=== PATIENT | female | born 1975 | race African-American/Black ===

== ENCOUNTER 2020-11-05 12:09 | Inpatient (IN) | payer BC, MEDICAID ==
[~2020-11-05] VITALS: Ht 165.1 cm; Wt 90.7 kg
[2020-11-05 14:39] LABS: BASOPHILS % 1.3 % (0.0-2.0); EOSINOPHILS % 0.9 % (0.0-5.0); HEMATOCRIT. 36.8 % (36.0-48.0); HEMOGLOBIN. 12.5 g/dL (12.0-16.0); MEAN CORPUSCULAR HEMOGLOBIN 30.9 pg (28.0-32.0); MEAN PLATELET VOLUME 7.8 fl (7.4-10.4); MONOCYTES % 8.1 % (2.0-8.0); NEUTROPHILS % 60.7 % (40.0-76.0); PLATELET 273 x1000/uL (130-400); RED BLOOD CELL COUNT 4.04 mill/uL (4.2-5.4); RED CELL DISTRIBUTION WIDTH 13.2 % (11.6-14.6)
[2020-11-05 14:48] LABS: CHLORIDE 108 mEq/L (98-107)
[2020-11-05] MEDS ORDERED: MORPHINE SULFATE 2 MG/ML CPJ (NOT FOR IM USE) IV PRN (22:30)
[2020-11-05] MEDS ORDERED: ACETAMINOPHEN 325MG TABLET PO PRN (22:30)
[2020-11-05] MEDS ORDERED: HYDROCODONE/ACETAMINOPHEN 5/325MG TABLET PO PRN (22:30)
[2020-11-05] MEDS ORDERED: CLONIDINE 0.1MG TABLET PO PRN (22:30)
[2020-11-05] MEDS ORDERED: ONDANSETRON HCL 4MG/2ML INJ IV PRN (22:30)
[2020-11-05] MEDS ORDERED: LORAZEPAM 2MG/ML CPJ IV PRN (22:30)
[2020-11-06 04:26] VITALS: BP 146/82
[2020-11-06] MEDS ORDERED: OXYM-15 NS (04:47)
[2020-11-06] MEDS ORDERED: MEDR5TAB4 PO (04:47)
[2020-11-06] MEDS ORDERED: FLUT9.9S16 BOTHNSTRLS (04:47)
[2020-11-06] MEDS ORDERED: AZEL205. BOTHNSTRLS (04:47)
[2020-11-06] MEDS ORDERED: POTA8CAP20 PO (04:47)
[2020-11-06] MEDS ORDERED: FURO40TA5 PO (04:47)
[2020-11-06] MEDS ORDERED: *PATIENT'S OWN MEDICATION STORAGE XX SCH (05:00)
[2020-11-06] MEDS ORDERED: IPRATROPIUM/ALBUTEROL 0.5-3(2.5)MG/3ML NEB HHN PRN (07:15)
[2020-11-06] MEDS ORDERED: DOCUSATE SODIUM 100MG CAPSULE PO PRN (07:15)
[2020-11-06] MEDS ORDERED: MAGNESIUM/ALUMINUM HYDROXIDE/SIMETHICONE 30ML UDC PO PRN (07:15)
[2020-11-06 07:41] LABS: BASOPHILS % 0.5 % (0.0-2.0); EOSINOPHILS % 1.5 % (0.0-5.0); HEMATOCRIT. 34.9 % (36.0-48.0); HEMOGLOBIN. 11.8 g/dL (12.0-16.0); LYMPHOCYTES % 29.2 % (20.0-50.0); MEAN CORPUSCULAR VOLUME 91.4 fL (81.0-99.0); MEAN PLATELET VOLUME 8.5 fl (7.4-10.4); MONOCYTES % 6.9 % (2.0-8.0); NEUTROPHILS % 61.9 % (40.0-76.0); PLATELET 245 x1000/uL (130-400); RED BLOOD CELL COUNT 3.82 mill/uL (4.2-5.4); RED CELL DISTRIBUTION WIDTH 12.9 % (11.6-14.6)
[2020-11-06 08:00] VITALS: BP 123/71
[2020-11-06 08:21] LABS: *AMPHETAMINES SCREEN URINE NEGATIVE (NEGATIVE); *BARBITURATES SCREEN URINE NEGATIVE (NEGATIVE); *BENZODIAZEPINES SCREEN URINE NEGATIVE (NEGATIVE); *COCAINE SCREEN URINE NEGATIVE (NEGATIVE)
[2020-11-06 08:22] LABS: CANNABINOID URINE SCREEN NEGATIVE (NEGATIVE); METHADONE URINE SCREEN NEGATIVE (NEGATIVE); OPIATES URINE SCREEN NEGATIVE (NEGATIVE); PHENCYCLIDINE URINE SCREEN NEGATIVE (NEGATIVE)
[2020-11-06] MEDS: FUROSEMIDE 40MG TABLET PO SCH (08:35)
[2020-11-06 08:49] LABS: CHLORIDE 108 mEq/L (98-107)
[2020-11-06] MEDS ORDERED: ENOXAPARIN 40MG/0.4ML SYR SUBCUT SCH (09:00)
[2020-11-06 12:00] VITALS: BP 111/66
[2020-11-06 16:00] VITALS: BP 125/74
[2020-11-06 20:03] VITALS: BP 130/78
[2020-11-06 22:03] VITALS: BP 124/78
[2020-11-07] VITALS (7 sets, daily range): BP systolic 105–125; BP diastolic 57–87
[2020-11-07] MEDS ORDERED: OMEPRAZOLE 20MG CAPSULE EXTENDED RELEASE PO SCH (06:50)
[2020-11-07 07:06] LABS: BASOPHILS % 0.5 % (0.0-2.0); EOSINOPHILS % 2.8 % (0.0-5.0); HEMOGLOBIN. 12.1 g/dL (12.0-16.0); LYMPHOCYTES % 25.4 % (20.0-50.0); MEAN CORPUSCULAR HEMOGLOBIN 30.5 pg (28.0-32.0); MEAN CORPUSCULAR VOLUME 90.5 fL (81.0-99.0); MEAN PLATELET VOLUME 8.1 fl (7.4-10.4); MONOCYTES % 9.9 % (2.0-8.0); NEUTROPHILS % 61.4 % (40.0-76.0); PLATELET 246 x1000/uL (130-400); RED BLOOD CELL COUNT 3.98 mill/uL (4.2-5.4)
[2020-11-07 07:11] LABS: CHLORIDE 108 mEq/L (98-107)
[2020-11-07 07:18] LABS: LDL CHOLESTEROL 99 mg/dL (5-100)
[2020-11-07 07:19] LABS: HDL CHOLESTEROL 84 mg/dL (40-59)
[2020-11-07 07:20] LABS: T4 FREE 1.16 ng/dL (0.76-1.46)
[2020-11-07] MEDS: FUROSEMIDE 40MG TABLET PO SCH (08:18)
[2020-11-07] MEDS ORDERED: ENOXAPARIN 30MG/0.3ML SYR SUBCUT SCH (09:00)
[2020-11-07] MEDS ORDERED: POTASSIUM CHLORIDE 20MEQ TABLET SR PO SCH (10:00)
== END 2020-11-07 17:30 | disposition home or self-care (01) | DRG 206 ==
LOC: ER 12:15 → 3WST 16:42 → EDBEDREQ 16:54 → ENRESERV 22:05
PROVIDERS: ADMIT Internal Medicine Nephrology; ATTEND Internal Medicine Nephrology
DX: M94.0 Chondrocostal junction syndrome [Tietze] (principal); F41.9 Anxiety disorder, unspecified; F45.9 Somatoform disorder, unspecified; I10 Essential (primary) hypertension; Z90.711 Acquired absence of uterus with remaining cervical stump; Z88.1 Allergy status to other antibiotic agents; Z88.8 Allergy status to other drugs, medicaments and biological substances; Z79.899 Other long term (current) drug therapy; D49.9 Neoplasm of unspecified behavior of unspecified site; R53.1 Weakness
CPT/HCPCS: 36415; 70551; 71045; 80048; 80061; 80305; 83735; 84439; 84443; 84484; 85025; 93005; 93306; 93970; 97162; 97530; 99285; J1650